=== PATIENT | female | born 1935 | race Caucasian/White ===

== ENCOUNTER 2017-03-30 07:35 | Inpatient (IN) | payer MEDICARE, OTHER ==
--- NOTE | 2017-03-13 15:45 | Rehab Joint Replacement Pre-Op ---
Rehab Joint Replacement Pre-Op - Pre-Op Visit Reviewed Items Scheduled for Post Op Visit: Yes Scheduled Post Op Visit Date: 03/31/17 Alexi Hose/Garment Measurement TKR - Knee High: Yes Alexi Hose/Garment Measure THR - Thigh High: Yes Exercise Reviewed: Yes Stair Climbing: Yes Cane/Walker/Crutch Training: Yes Vend Equipment - Cane or Walker and OT Kit: N/A List of Venders in the Area: N/A Shower Chair Transfers: Yes Car Transfers: Yes Bed Transfers: Yes Medical History Forms Issued: N/A Functional Scale Forms Issued: N/A Additional Comments: The patient lives in a one story home with 3 steps and 2 railings at the enterance. The patient has a regular tub /shower combo with a tub chair. The patient had L TKA 7 months ago. The patient is going to a Rehab facility in the [facility].
[~2017-03-30 07:35] MED LIST: ACETAMINOPHEN 1000MG/100 ML PREMIX IV ONE; CELECOXIB 100 MG CAPSULE PO ONE; FAMOTIDINE 20MG TABLET PO ONE; MECLIZINE 25 MG TABLET PO ONE; METOCLOPRAMIDE 10 MG TABLET PO ONE; VANCOMYCIN HCL 1,000 MG in 0.9 % SODIUM CHLORIDE 250ML 250 ML IVPB ONE
[2017-03-30] MEDS ORDERED: BUPIVACAINE LIPOSOME 266MG/20ML VIAL IV ONE (10:32)
[2017-03-30] MEDS ORDERED: TRANEXAMIC ACID 1,000 MG/10 ML ML IV ONE ×2 (10:32→14:00)
[2017-03-30] MEDS ORDERED: BUPIVACAINE 0.5% W/EPI MPF 30 ML VIAL IVP ONE (10:32)
[2017-03-30] MEDS ORDERED: VANCOMYCIN HCL 1 GM VIAL IVPB ONE ×2 (10:49→14:00)
[2017-03-30 14:00] LABS: ABO GROUP O; ANTIBODY SCREEN NEGATIVE (NEGATIVE); RH TYPE POSITIVE
[2017-03-30] MEDS ORDERED: DIPHENHYDRAMINE HCL IV 50 MG/ML VIAL IVP ONE (14:00)
[2017-03-30] MEDS ORDERED: PROPOFOL 10 MG/ML VIAL IV ONE (14:00)
[2017-03-30] MEDS ORDERED: BUPIVACAINE 0.25% W/EPI MPF 30ML VIAL IVP ONE (14:00)
[2017-03-30] MEDS ORDERED: MIDAZOLAM HCL 2MG/2ML VIAL IV ONE (14:00)
[2017-03-30] MEDS ORDERED: FENTANYL PF 100MCG/2ML VIAL IV ONE (14:00)
[2017-03-30] MEDS ORDERED: DEXTROSE 5 % AND 0.9 % NACL 1,000 ML IV PRN (14:04)
[2017-03-30] MEDS ORDERED: HYDROCODONE/APAP 7.5/325MG TABLET PO PRN (14:04)
[2017-03-30] MEDS ORDERED: KETOROLAC 30 MG/ML VIAL IVP PRN ×2 (14:04)
[2017-03-30] MEDS ORDERED: MORPHINE SULFATE 5 MG/ML PFS IVP PRN ×4 (14:04)
[2017-03-30] MEDS ORDERED: ONDANSETRON HCL IV 4 MG/2 ML VIAL IVP PRN (14:04)
[2017-03-30] MEDS ORDERED: ACETAMINOPHEN W/ CODEINE 300MG/30MG TABLET PO PRN ×2 (14:04)
[2017-03-30] MEDS ORDERED: ACETAMINOPHEN 325 MG TAB PO PRN (14:04)
[2017-03-30] MEDS ORDERED: NALOXONE 0.4 MG/1 ML VIAL IVP PRN (14:04)
[2017-03-30] MEDS ORDERED: BISACODYL 10 MG SUPP RC PRN (14:04)
[2017-03-30] MEDS ORDERED: PROMETHAZINE HCL 12.5 MG in 0.9 % SODIUM CHLORIDE 100ML 50 ML IVPB PRN (14:04)
[2017-03-30] MEDS ORDERED: AL HYDROX/MAG HYDROX 30ML UD PO PRN (14:04)
[2017-03-30] MEDS ORDERED: ZOLPIDEM TARTRATE 5 MG TABLET PO PRN (14:04)
[2017-03-30] MEDS ORDERED: TRAMADOL HCL 50 MG TABLET PO PRN (14:04)
[2017-03-30] MEDS ORDERED: HYDROMORPHONE HCL 2 MG/ML VIAL IM PRN (14:04)
[2017-03-30] MEDS ORDERED: DIPHENHYDRAMINE HCL 25 MG CAPSULE PO PRN (14:04)
[2017-03-30] MEDS ORDERED: HYDROCODONE/APAP 5/325MG TABLET PO PRN ×2 (14:04)
[2017-03-30] MEDS ORDERED: MAGNESIUM HYDROXIDE 30 ML UDC PO PRN (14:04)
[2017-03-30] MEDS ORDERED: METOCLOPRAMIDE HCL 10 MG/2 ML VIAL IVP PRN (14:04)
[2017-03-30] MEDS ORDERED: ACETAMINOPHEN W/ CODEINE 300MG/60MG TABLET PO PRN ×2 (14:04)
[2017-03-30] MEDS: HYDROMORPHONE HCL 1 MG/ML CPJ IM PRN (17:11)
[2017-03-30] MEDS: 0.9 % SODIUM CHLORIDE 1000ML 1,000 ML IV PRN (18:29)
[2017-03-30] MEDS: HYDROCODONE/APAP 7.5/325MG TABLET PO PRN (20:08)
[2017-03-30] MEDS: FERROUS SULFATE 325 MG TAB PO SCH (22:32)
[2017-03-30] MEDS: DOCUSATE SODIUM 100 MG CAPSULE PO SCH (22:32)
[2017-03-31] MEDS: HYDROCODONE/APAP 7.5/325MG TABLET PO PRN ×5 (00:16→21:04)
[2017-03-31] MEDS: VANCOMYCIN HCL 1 MG in 0.9 % SODIUM CHLORIDE 250ML 250 ML IVPB SCH ×2 (00:18→15:23)
[2017-03-31] MEDS: 0.9 % SODIUM CHLORIDE 1000ML 1,000 ML IV PRN (06:39)
[2017-03-31 06:45] LABS: HEMATOCRIT 32.4 % (35.0-47.0); HEMOGLOBIN 10.2 gm/dl (11.6-16.0)
[2017-03-31] MEDS: HUMULIN R 100 UNIT/ML VIAL SQ SCH ×3 (07:43→16:56)
[2017-03-31] MEDS: DOCUSATE SODIUM 100 MG CAPSULE PO SCH ×2 (10:15→21:04)
[2017-03-31] MEDS: FERROUS SULFATE 325 MG TAB PO SCH ×2 (10:15→21:05)
[2017-03-31] MEDS: RIVAROXABAN 10 MG TABLET PO SCH (10:15)
[2017-03-31] MEDS: CELECOXIB 100 MG CAPSULE PO SCH (10:16)
[2017-03-31] MEDS: ANASTRAZOLE 1 MG PO SCH (10:20)
[2017-03-31] MEDS: HYDROCHLOROTHIAZIDE 12.5 MG PO SCH (10:20)
[2017-03-31] MEDS: LISINOPRIL 40 MG PO SCH (10:20)
[2017-03-31] MEDS: GLIMEPIRIDE 4 MG PO SCH (10:20)
[2017-03-31] MEDS: ALLOPURINOL 100 MG PO SCH (10:20)
[2017-03-31] MEDS: PATIENT OWN MED: VENLAFAXINE ER 75 MG PO SCH (10:21)
--- NOTE | 2017-03-31 10:54 | Rehab Evaluation ---
Patient Information - Patient Information Diagnosis: OA with TKA right Ordered Treatment: PT Evaluate and Treat Status: Initial Evaluation Surgery: Yes (TKA right) Date of Surgery: 03/30/17 Past Medical/Surgical Hx: PAST MEDICAL/SURGICAL HISTORY Surgery to Affected Area? No Recent Surgery? Past Surgical History left TKA; channing; hyst; lumpectomy left w/ radiation; appy; PMH - Respiratory Hx Respiratory Disorders Yes Hx Chronic Obstructive Yes Pulmonary Disease (COPD) Hx Dyspnea Yes Hx Pneumonia Yes Hx Sleep Apnea No Hx of CPAP No Hx of URI No Hx of Productive Cough No Hx of SOB Yes Hx of Oxygen Therapy Yes: 2l/min at night; and PRN during day PMH - Cardiovascular Hx Cardiovascular Disorders Yes Hx Abnormal EKG Yes: 07/2016 Hx Edema Yes Hx Heart Attack No Hx Hypertension Yes Hx Irregular Heartbeat No Exercise Tolerance Fair PMH - Neuro Hx Neurological Disorders Yes Hx Dizziness Yes Hx Neuropathy Yes: tingling in feet PMH - GI Hx Gastrointestinal Disorders Yes PMH - Hx Genitourinary Disorders Yes Comment: hyst PMH - Endocrine Hx Endocrine Disorders Yes Hx Diabetes Yes Hx of NIDDM Yes PMH - Musculoskeletal Hx Musculoskeletal Disorders Yes Hx Arthritis Yes Hx Gout Yes: left great toe PMH - Psych Hx Psychiatric Problems No PMH - Hematology/Oncology Hx Hematology/Oncology Yes Disorders Hx Radiation Therapy Yes: breast ca Precautions: [place], Fall - Time With Patient Total Time Spent With Patient (Min): 30 Treatment Procedures: Detail (Patient seen in room, sitting up in bed. Able to perform knee exercises with quad and glut sets, heel slides, SLR and ankle pumps with good tolerance. Supine to sit with slight assist for right leg to slide edge of bed then sit to stand with CGA only. Ambulated with FWW to bathroom and able to sit on commode safely then stand from commode safely, washed hands then ambulated into uriarte with CGA about 50 feet then turned around and back to edge of bed. Does not have appropriate chair in room so back into bed with little assist with right LE. Found more appropriate chair for this patient and switched it out so she can sit up for lunch. Left patient with tray table and call light close and cryocuff and compressive stockings on leg.) Subjective Information - Subjective Information Per Patient (Patient lives alone in house single story but three steps to get in and does not have a lot of extra help so plans to go to a rehab facility after inpatient.) Objective Data - Pain Pain Present: Yes (Minimal: 2-5/10) - Mental Status Patient Orientation: Oriented x3 - Visual Perception Appears within normal limits for therapeutic activities - ROM Within normal limits (except right knee -5 degrees extension to 60 degrees flexion.) - Strength/Tone Within normal limits (Some weakness in quads.) - Coordination Appears within normal limits for therapeutic activities - Bed Mobility Needs Assist (Needs slight assist for right LE into and out of bed) - Transfers Needs Assist (Needs some assist sit to stand from low surface.) - Balance Balance Sitting: Good Balance Standing: Good - Sensation Intact - Gait Detail (Using FWW for ambulation with WBAT right LE with good technique.) Therapy Assessment - Therapy Assessment Detail (Doing quite well with surgery so far and pain controlled quite well. Mobility should continue to improve.) Patient Education - Patient Education Teaching Topic: Equipment Use, Exercise/Activity Response: Return Demonstration Teaching Method: Discussion, Demonstration Teaching Recipient: Patient Barriers To Learning: None Problem List - Problem List Physical Therapy Problem List: Detail (Some issues with mobility getting into and out of bed, up and down from chairs and commode. Some issues with gait distance and other functions.) Goals - Goals Physical Therapy Goals: Patient will be independent into/out of bed and be able to sit to stand from high chair, ambulate community distances safely for discharge. Steps needs to be at least safe and functional on three steps. Prognosis - Prognosis Good Plan - Plan Physical Therapy Plan: Continue PT until passes goals of safety with transfers and ambulation, steps: at least three. Plans to go to rehab facility so may see until discharge to that facility if needed for safety.
--- NOTE | 2017-03-31 14:42 | Physical Therapy Tx Note ---
Physical Therapy Tx Note - Treatment Note Tolerated: Good Total Time Spent With Patient: 20 Physical Therapy Tx Note: Detail (The patient was in bed when PT arrived. The patient acheived supine to sit transfer. The patient ambulated with wheeled walker 13 feet x 1 to bathroom with CG of 1 for safety WBAT on the R LE. The patient ambulated 40 feet x1 with wheeled walker WBAT on the R with CG of 1 for safety. The patient was independent with sit to supine transfer and scooting up in bed, however shortness of breath was noted with this activity. The patient acheived sit to and from stand independently. The patient's pressure garments and ice were reattached. Call light was placed within reach.) Physical Therapy Problem List: Detail (Some issues with mobility getting into and out of bed, up and down from chairs and commode. Some issues with gait distance and other functions.) Physical Therapy Goals: Patient will be independent into/out of bed and be able to sit to stand from high chair, ambulate community distances safely for discharge. Steps needs to be at least safe and functional on three steps. Physical Therapy Plan: Continue PT until passes goals of safety with transfers and ambulation, steps: at least three. Plans to go to rehab facility so may see until discharge to that facility if needed for safety.
[2017-04-01] MEDS: HYDROCODONE/APAP 7.5/325MG TABLET PO PRN ×4 (01:41→21:12)
[2017-04-01] MEDS: HYDROMORPHONE HCL 1 MG/ML CPJ IM PRN (02:40)
--- NOTE | 2017-04-01 06:58 | RADIOLOGY REPORT ---
EXAM: PORTABLE CHEST HISTORY: DIFFICULTY IN BREATHING. TECHNIQUE: A single AP view of the chest was performed. FINDINGS: There is mild cardiomegaly. Mild pulmonary vascular congestion. No infiltrate or pleural effusion. IMPRESSION: CARDIOMEGALY WITH MILD CONGESTION. JOB NUMBER: [id number] MTDD
[2017-04-01] MEDS: HUMULIN R 100 UNIT/ML VIAL SQ SCH ×3 (08:05→17:15)
--- NOTE | 2017-04-01 08:08 | Rehab Evaluation ---
Patient Information - Patient Information Diagnosis: OA with TKA right Ordered Treatment: OT Evaluate and Treat Status: Initial Evaluation Surgery: Yes (TKA right) Date of Surgery: 03/30/17 Past Medical/Surgical Hx: PAST MEDICAL/SURGICAL HISTORY Surgery to Affected Area? No Recent Surgery? Past Surgical History left TKA; channing; hyst; lumpectomy left w/ radiation; appy; PMH - Respiratory Hx Respiratory Disorders Yes Hx Chronic Obstructive Yes Pulmonary Disease (COPD) Hx Dyspnea Yes Hx Pneumonia Yes Hx Sleep Apnea No Hx of CPAP No Hx of URI No Hx of Productive Cough No Hx of SOB Yes Hx of Oxygen Therapy Yes: 2l/min at night; and PRN during day PMH - Cardiovascular Hx Cardiovascular Disorders Yes Hx Abnormal EKG Yes: 07/2016 Hx Edema Yes Hx Heart Attack No Hx Hypertension Yes Hx Irregular Heartbeat No Exercise Tolerance Fair PMH - Neuro Hx Neurological Disorders Yes Hx Dizziness Yes Hx Neuropathy Yes: tingling in feet PMH - GI Hx Gastrointestinal Disorders Yes PMH - Hx Genitourinary Disorders Yes Comment: hyst PMH - Endocrine Hx Endocrine Disorders Yes Hx Diabetes Yes Hx of NIDDM Yes PMH - Musculoskeletal Hx Musculoskeletal Disorders Yes Hx Arthritis Yes Hx Gout Yes: left great toe PMH - Psych Hx Psychiatric Problems No PMH - Hematology/Oncology Hx Hematology/Oncology Yes Disorders Hx Radiation Therapy Yes: breast ca Premorbid Status: Detail (Pt lives alone in a double wide mobile home, 3 steps and rodney hand railings at the entrance. She has a tub/shower combination, elevated toilet seat, 2 wheeled walker, straight cane, sock aid and vacuum forming machine operator. She rented a tub bench and commode after her last knee surgery and may do that again. Prior to surgery she was Ind with all self cares, meal prep, laundry, home mgmt tasks. Her son completed yard work.) Social History: Detail (Pt has a supportive son and daughter in law who live 4 miles away and a supportive brother.) Precautions: [place], Fall - Time With Patient Total Time Spent With Patient (Min): 35 Treatment Procedures: Detail (OT eval low complexity) Subjective Information - Subjective Information Per Patient Objective Data - Pain Pain Present: Yes (04/18 right knee) - Mental Status Patient Orientation: Oriented x3 - Visual Perception Appears within normal limits for therapeutic activities (Pt wears glasses at all times.) - ROM Within normal limits (Rodney UE AROM WNL) - Strength/Tone Within normal limits (Rodney UE MMT WNL) - Coordination Appears within normal limits for therapeutic activities - Bed Mobility Independent (Ind with supine to sit.) - Transfers Independent (Ind with sit to stand from EOB.) - Balance Balance Sitting: Good Balance Standing: Good - Sensation Intact - Gait Detail (Pt able to ambulate several steps from EOB to chair with 2 wheeled walker and SBA.) - ADL's/IADL's Detail (Pt reports she does not want to perform ADLs at this time as she feels she will have no problem and she is planning to go to IP rehab for a short stay. ) Therapy Assessment - Therapy Assessment Detail (Pt presents with WNL UE function, no concerns re: self care activities after discharge.) Problem List - Problem List Physical Therapy Problem List: Detail (Some issues with mobility getting into and out of bed, up and down from chairs and commode. Some issues with gait distance and other functions.) Occupational Therapy Problem List: Detail (No OT problems identified.) Goals - Goals Physical Therapy Goals: Patient will be independent into/out of bed and be able to sit to stand from high chair, ambulate community distances safely for discharge. Steps needs to be at least safe and functional on three steps. Occupational Therapy Goals: No OT goals identified at this time. Prognosis - Prognosis Good Plan - Plan Physical Therapy Plan: Continue PT until passes goals of safety with transfers and ambulation, steps: at least three. Plans to go to rehab facility so may see until discharge to that facility if needed for safety. Occupational Therapy Plan: No further OT recommended at this time. Thank you for this referral.
[2017-04-01] MEDS: FERROUS SULFATE 325 MG TAB PO SCH ×2 (09:39→21:11)
[2017-04-01] MEDS: DOCUSATE SODIUM 100 MG CAPSULE PO SCH ×2 (09:39→21:11)
[2017-04-01] MEDS: CELECOXIB 100 MG CAPSULE PO SCH (09:39)
[2017-04-01] MEDS: RIVAROXABAN 10 MG TABLET PO SCH (09:39)
[2017-04-01] MEDS: ALLOPURINOL 100 MG PO SCH (09:41)
[2017-04-01] MEDS: GLIMEPIRIDE 4 MG PO SCH (09:42)
[2017-04-01] MEDS: ANASTRAZOLE 1 MG PO SCH (09:42)
[2017-04-01] MEDS: HYDROCHLOROTHIAZIDE 12.5 MG PO SCH (09:43)
[2017-04-01] MEDS: LISINOPRIL 40 MG PO SCH (09:43)
[2017-04-01] MEDS: PATIENT OWN MED: VENLAFAXINE ER 75 MG PO SCH (09:44)
[2017-04-01] MEDS: TRAMADOL HCL 50 MG TABLET PO PRN (09:48)
--- NOTE | 2017-04-01 10:46 | Physical Therapy Tx Note ---
Physical Therapy Tx Note - Treatment Note Tolerated: Good (Patient quite short of breath today so on O2 when entered room and used 3L/min with walking and stairs today but did well.) Total Time Spent With Patient: 30 Physical Therapy Tx Note: Detail (Patient seen in room, sitting up in bed but has been up in chair earily. Supine to sit to stand with only CGA for safety transitioning then ambulated to bathroom with FWW and 2L/min O2 to use commode. Able to transition to commode and around in bathroom independently. Ambulated to chair and sat for a few minutes while PT retrieved wheelchair then wheeled to stairs in uriarte with assist of one other. Sit to stand independently then ambulated two steps to stairs, stepped down three steps with rail, FWW folded and used correct technique for knee. Pivoted around with FWW then ambulated back up three steps with FWW, rail and min assist of PT for safety, O2 on 3L/min the whole time. Patient able to ambulate back to room about 75 feet with O2 on 3L/min and FWW with only SBA then into bed to rest. Re-set O2 to 2L/min then min assist into bed with right LE then assisted patient with standard knee exercises. Left patient on 2L/min O2, tray table close, cryocuff and compressive stockings on legs, call light close.) Physical Therapy Problem List: Detail (Some issues with mobility getting into and out of bed, up and down from chairs and commode. Some issues with gait distance and other functions.) Physical Therapy Goals: Patient will be independent into/out of bed and be able to sit to stand from high chair, ambulate community distances safely for discharge. Steps needs to be at least safe and functional on three steps. Prognosis: Good (Patient doing much better with mobility today but notes short of breath so on oxygen for activity.) Physical Therapy Plan: Continue PT until passes goals of safety with transfers and ambulation, steps: at least three. Plans to go to rehab facility so may see until discharge to that facility if needed for safety.
--- NOTE | 2017-04-01 15:51 | Physical Therapy Tx Note ---
Physical Therapy Tx Note - Treatment Note Tolerated: Fair Total Time Spent With Patient: 20 Physical Therapy Tx Note: Detail (The patient was in bed when PT arrived. The patient ambulated with wheeled walker a distance of 54 feet x 1 WBAT on the R LE . The patient was independent with bed mobility and sit to and from transfer. The patient completed knee flexion ROM while seated in the wheelchair. The patient continues to exhibit shortness of breath with activity. ) Physical Therapy Problem List: Detail (Some issues with mobility getting into and out of bed, up and down from chairs and commode. Some issues with gait distance and other functions.) Physical Therapy Goals: Patient will be independent into/out of bed and be able to sit to stand from high chair, ambulate community distances safely for discharge. Steps needs to be at least safe and functional on three steps. Physical Therapy Plan: Continue PT until passes goals of safety with transfers and ambulation, steps: at least three. Plans to go to rehab facility so may see until discharge to that facility if needed for safety.
[2017-04-02] MEDS: TRAMADOL HCL 50 MG TABLET PO PRN (02:08)
[2017-04-02] MEDS: HUMULIN R 100 UNIT/ML VIAL SQ SCH (08:06)
[2017-04-02] MEDS: DOCUSATE SODIUM 100 MG CAPSULE PO SCH (10:14)
[2017-04-02] MEDS: FERROUS SULFATE 325 MG TAB PO SCH (10:14)
[2017-04-02] MEDS: CELECOXIB 100 MG CAPSULE PO SCH (10:14)
[2017-04-02] MEDS: ALLOPURINOL 100 MG PO SCH (10:16)
[2017-04-02] MEDS: ANASTRAZOLE 1 MG PO SCH (10:17)
[2017-04-02] MEDS: GLIMEPIRIDE 4 MG PO SCH (10:18)
[2017-04-02] MEDS: HYDROCHLOROTHIAZIDE 12.5 MG PO SCH (10:18)
[2017-04-02] MEDS: LISINOPRIL 40 MG PO SCH (10:19)
[2017-04-02] MEDS: RIVAROXABAN 10 MG TABLET PO SCH (10:21)
[2017-04-02] MEDS: PATIENT OWN MED: VENLAFAXINE ER 75 MG PO SCH (10:51)
[2017-04-02] MEDS: HYDROCODONE/APAP 7.5/325MG TABLET PO PRN (10:56)
--- NOTE | 2017-04-07 11:44 | Operative Note ---
DATE OF SURGERY: 03/30/2017. PREOPERATIVE DIAGNOSIS: End-stage right knee arthritis. POSTOPERATIVE DIAGNOSIS: End-stage right knee arthritis. OPERATION: Right total knee arthroplasty. Surgeon: Brooks Gaming MD. Anesthesia: Spinal. COMPLICATIONS: None. Blood Loss: Minimal. Tourniquet Time: Approximately 45-50 minutes. Components Placed: Two gram vancomycin, [employer]hew Journey 2 Oxinium size 5 femoral component, size 5 tibial base plate, 9 mm thick tibial poly insert, 32 mm cemented patellar component. Indication: This is an 82-year-old female who is well known to my service. She is status post left total knee arthroplasty done a few years ago; now is scheduled for the right. I explained the risks, and benefits of surgery in detail for her diagnosis and procedure, including, but not limited to, infection, nerve injury, vessel injury, persistent pain, stiffness, numbness, tingling in her knee, periprosthetic fracture, need for resection, arthroplasty component could in fact loosen, blood clot, and need for further procedures. All her questions were answered and course outlined and need for anticoagulation, medications. All of her questions were answered, course outlined and she agreed to the procedure. PROCEDURE: The patient brought to the OR, placed in supine position by the Department of Surgery, spinal anesthesia induced and lower extremity and knee were prepped and draped in sterile fashion. The right knee was prepped using Chloraprep and draped. An intraoperative timeout was performed. Next, the leg was exsanguinated with an Esmarch, the knee was flexed and the tourniquet inflated to 250 mmHg pressure. Skin and subcutaneous tissue dissected down. Medial and lateral skin flaps were made and excised capsule from the medial patella to the tibial tubercle. Incised the vastus medialis in line with its fibers in a mid vastus approach. Partially resected the peripatellar fat pad and exposed the proximal knee. She had severe [id number] arthrosis in the patellofemoral joint predominantly. Drilled intercondylar drill hole and inserted intramedullary guide floyd with a 6-degree cutting block and cut the femur flush distally. We then put the cutting block in the +2 mm position, then cut this femur. Next, placed a sizing jig on the distal femur and sized to be right on size 5. Through the previously-placed pin holes, we placed the 5-in-1 cutting jig. We dialed so that the anterior cuts would come out flush without notching. We cut that cut, and it was a good cut. Cut the remainder of the chamfer cuts in usual fashion. Next inserted the cruciate bone reamer and block and seated it and then reamed with the box osteotome and cruciate bone box. Attention was then turned to the tibia. We of the tibia, exposed with a Hohmann and Ирина retractors, then referenced for a 9 mm cut off the higher medial plateau. We pinned it in place provisionally with 2 anterior and posterior pins. We then rechecked alignment using drop floyd centered on the tibial anatomic axis distally, cross-pinned the complete fixation, and then cut the tibia. Next, we removed osteophytes off the posterior femoral condyle using curved osteotome, checked flexion and extension gaps which were basically symmetric flexion and extension gaps with a 9 mm thick block insert to allow for 2-3 mm varus/valgus laxity in flexion and extension. Overall alignment cuts and extension were within anatomic valgus orientation with an alignment floyd centered on the hip joint and ankle joint. Next, we took the knee in flexion, sized the tibial baseplate to a size 5, replaced all trial components, set the rotation again, the tibial baseplate in extension and using the alignment floyd centered on the hip joint and ankle joint, and marked with electrocautery to the tibial cortex of the laser moreira of the tibial baseplate. Attention was then turned to the patella. We measured the patella. It was severely eroded in the patella; therefore, we only skived off a few millimeters of bone, set the cutting jig about 14 mm, and just cut it off in flush to make the surface flush of a sclerotic, eroded patella. We still had enough bone though to place her patellar placement. sized to be 32, medialized as much as possible, chamfered off the lateral patellar facet, drilled 3 peg holes, set a trial range of motion with patella in place, and mixed cement. The patella tracked nicely hands free with full extension and flexion to 140 to 150 degrees. Again symmetric flexion and extension gaps. Next, took the knee in flexion, sized the tibial baseplate with our previously-placed electrocautery , pinned in placed and reamed out and a keel punch, a keel hole. Next, we then changed gloves, gown and clean sheets, copiously irrigated the bony surfaces with pulse lavage antibiotic solution, and packed down the tibial component first, removing excess cement, then the femoral component, placed the trial tibial poly liner, clamped down the patellar components, until the cement hardened. Once the cement hardened, we took the knee in flexion, distracted the knee with a bone hook and sponge, removing excess cement again off the edges of the components. We irrigated copiously. Then we injected several poke holes 2 cm deep x 2 cm of our mixture bolus of 0.5% Marcaine with epi, 2 g tranexamic acid, and our Exparel. Working around the capsule first, medially and laterally, peripherally periosteum of the femur and then more superficially now all subcutaneous muscle, vastus medialis, and quadriceps and capsule until we used the entire mixture up. We distracted the knee bone hook and sponge and secured to the poly insert, verified it was interlocked medially and laterally. Final range of motion was the same. We irrigated copiously and then repaired the capsule in flexion using #2 Quill suture, irrigated again, closed the skin deep with 2-0 Vicryl, justin, and wound again. Sterile dressing applied and an Tello wrap. The patient tolerated the procedure well. No intraoperative complications. All sponge, needle, and instrument counts correct. To recovery stable. Neuro was intact. The patient can be discharged to the floor. Likely discharge in 2-3 days. ANISH
== END 2017-04-02 12:55 | DRG 470 ==
LOC: MEDSURG 12:22
PROVIDERS: ADMIT Orthopaedic Surgery; ATTEND Orthopaedic Surgery
PROC: 0SRC0J9 Replacement of Right Knee Joint with Synthetic Substitute, Cemented, Open Approach (ICD-10-PCS; principal; 2017-03-30 14:00)
DX: M17.11 Unilateral primary osteoarthritis, right knee (principal); J44.9 Chronic obstructive pulmonary disease, unspecified; I10 Essential (primary) hypertension
CPT/HCPCS: 36416; 71010; 82948; 85014; 85018; 86850; 86900; 86901; 97110; 97116; 97165; 97530; J1170; J1200; J1885; J7050